=== PATIENT | male | born 1965 | race Caucasian/White ===

== ENCOUNTER 2018-05-12 21:18 | Emergency (ER) | payer SELFPAY ==
[~2018-05-12] VITALS: Ht 177.8 cm; Wt 79.4 kg
[2018-05-12 21:18] VITALS: BP 136/99
--- NOTE | 2018-05-12 21:23 | NUR ---
PT MAREK DAVIS. TAKEN TO BED 11
--- NOTE | 2018-05-12 21:25 | NUR ---
PT BROUGHT INTO ED BY [facility]. PT REPORTS HEARING VOICESN AND REQUESTING HELP. PT REPORTS USING METH X 1 DAY AGO. PT SPEECH IS RAPID AND IS ORIENTED TO TIME, NAME, AND EVENT. PT IS PLACED ON ALL MONITORS AND SINUS TACHYCARDIA IS NOTED. NO LABORED BREATHED IS NOTED. R/R IS EVEN AND UNLABORED. PENDING MD SANDOVAL. Addendum: 05/12/18 at 2202 by JESS UPON ARRIVAL PT STATED HE WANTED TO CHECK INTO REHAB. PT TOLD EMS HE WAS HEARING VOICES AND REQUESTING HELP. NO MENTION OF THIS TO RN UPON ARRIVAL.
--- NOTE | 2018-05-12 21:27 | NUR ---
# 14 FR Urinary catheter inserted utilizing sterile technique. Immediate return of 50ML urine noted. Urine sample collected and sent to lab. Pt tolerated procedure WELL.
--- NOTE | 2018-05-12 22:12 | NUR ---
Dr. Fields evaluating patient at bedside.
[2018-05-12] MEDS ORDERED: NACL 0.9% 1,000 ML IV ONE (22:20)
[2018-05-12] MEDS ORDERED: KETOROLAC 30 MG/ML VIAL IVP ONE (22:20)
[2018-05-12] MEDS ORDERED: ASPIRIN 81 MG TAB.CHEW PO ONE (22:20)
--- NOTE | 2018-05-12 22:27 | NUR ---
X-Ray at bedside.
[2018-05-12 22:30] LABS: APPEARANCE,URINE CLEAR (CLEAR); BILIRUBIN,URINE 1+ (NEGATIVE); BLOOD, URINE NEGATIVE (NEGATIVE); COLOR,URINE YELLOW (YELLOW); LEUKOCYTE ESTERASE ,URINE NEGATIVE (NEGATIVE); NITRITE, URINE NEGATIVE (NEGATIVE); UGLUCOSE NEGATIVE (NEGATIVE)
[2018-05-12 22:36] LABS: BARBITURATE, URINE NEG. ng/ml (NEG <=200); BENZODIAZEPINE, URINE NEG. ng/mL (NEG <=200); CANNABINOID, URINE NEG. ng/mL (NEG <=50); COCAINE, URINE NEG. ng/mL (NEG <=300); OPIATE, URINE POS. ng/mL (NEG <=2000); PHENCYCLIDINE SCREEN,URINE NEG. ng/mL (NEG <=25)
[2018-05-12 22:51] LABS: RBC,URINE 0-5 (RARE) /HPF (0-5); URINE AMORPHOUS URATE 2+ /HPF (None Seen); WBC,URINE 0-5 (RARE) /HPF (0-5)
[2018-05-12 22:53] LABS: BASOPHILS # (AUTO) 0.1 K/uL (0.00-0.22); BASOPHILS % (AUTO) 0.4 % (0.0-2.0); HEMATOCRIT 44.2 % (36-52); HEMOGLOBIN 14.7 g/dL (12.0-18.0); LYMPHOCYTES # (AUTO) 1.5 K/uL (2.0-11.5); LYMPHOCYTES % (AUTO) 9.9 % (20.5-51.1); MEAN CORPUSCULAR HEMOGLOBIN 27 pg (27-31); MEAN CORPUSCULAR HGB CONC 33 g/dL (33-37); MEAN CORPUSCULAR VOLUME 81.6 fL (80-94); MONOCYTES # (AUTO) 1.1 K/uL (0.8-1.0); MONOCYTES % (AUTO) 6.8 % (1.7-9.3); NEUTROPHILS # (AUTO) 12.9 K/uL (1.8-7.7); NEUTROPHILS % (AUTO) 82.9 % (42.2-75.2); PLATELET COUNT (AUTO) 374 K/uL (140-450); RED BLOOD CELL COUNT(AUTO) 5.42 MIL/uL (4.20-6.10); RED CELL DISTRIBUTION WIDTH 16.8 % (11.6-13.7)
[2018-05-12 23:00] LABS: ANION GAP 14.2 (8-16); CARBON DIOXIDE 24.5 mmol/L (21-32); CREATININE 0.9 mg/dL (0.7-1.3); POTASSIUM 3.7 mmol/L (3.5-5.1)
[2018-05-12 23:03] LABS: PROTHROMBIN TIME 11.8 secs (10.8-13.4); WHITE BLOOD COUNT (AUTO) 15.6 K/uL (4.8-10.8)
[2018-05-12 23:07] LABS: ALBUMIN 4.1 g/dL (3.4-5.0); TOTAL BILIRUBIN 0.6 mg/dL (0.0-1.0)
--- NOTE | 2018-05-13 00:06 | NUR ---
PT THREW CLOTHES IN MY FACE THREE TIMES. PT THREW HIS SHOES AT ME. SECURITY CALLED FOR ASSISTANCE WITH DISCHARGING PATIENT. PT REFUSED TO SIGN DISCHARGE PAPARS. SECURITY AT BEDSIDE ASSISTING PT TO BE DISCHARGED .
[2018-05-13 00:09] VITALS: BP 130/89
--- NOTE | 2018-05-13 00:26 | NUR ---
[facility] HERE NOW TO ESCORT PT OFF PREMESIS
--- NOTE | 2018-05-13 00:50 | NUR ---
Patient discharged with v/s stable. Written and verbal after care instructions given and explained. PT REFUSED TO SIGN DISCHARGE PAPERWORK. Ambulatory with steady gait ESCORTED BY [facility]. All questions addressed prior to discharge. Advised to follow up with PMD.
[2018-05-13] MEDS ORDERED: LISI5TAB18 PO (17:17)
== END 2018-05-13 00:50 | disposition home or self-care (01) ==
LOC: MED 21:18
DX: R07.9 Chest pain, unspecified (principal); F15.10 Other stimulant abuse, uncomplicated; F17.200 Nicotine dependence, unspecified, uncomplicated
CPT/HCPCS: 36415; 71045; 80053; 80305; 81001; 83880; 84484; 85025; 85610; 85730; 96374; 99285; J1885; J7030; Q0092

== ENCOUNTER 2018-05-13 11:44 | Inpatient (IN) | payer MEDICAID ==
[~2018-05-13] VITALS: Ht 175.3 cm; Wt 76.8 kg
--- NOTE | 2018-05-13 11:46 | NUR ---
PT JORGEA BLS TO ER BED 09
--- NOTE | 2018-05-13 11:50 | NUR ---
PT SEEN IN ER YESTERDAY WITH METH. USE AND INSOMNIA. TODAY DENIES METH/ALCOHOL USE BUT CAN NOT SLEEP. NO OTHER COMPLAINTS. HX: SUBSTANCE ABUSE, DEPRESSION,CABG, ANXIETY,DEPRESSION. DENIES MEDS.VSS; PATIENT POSITIONED FOR COMFORT; HOB ELEVATED; BEDRAILS UP X2; BED DOWN. ER MD MADE AWARE OF PT STATUS.
[2018-05-13 11:55] VITALS: BP 118/80
[2018-05-13] MEDS ORDERED: ACETAMINOPHEN 325 MG TAB PO ONE (12:25)
[2018-05-13] MEDS ORDERED: NACL 0.9% 1,000 ML IV ONE (12:35)
[2018-05-13] MEDS ORDERED: NACL 0.9% 500 ML IV ONE (12:35)
[2018-05-13 13:17] LABS: BASOPHILS % (AUTO) 0.1 % (0.0-2.0); HEMATOCRIT 45.6 % (36-52); HEMOGLOBIN 15.2 g/dL (12.0-18.0); LYMPHOCYTES % (AUTO) 18.5 % (20.5-51.1); MEAN CORPUSCULAR HEMOGLOBIN 27 pg (27-31); MEAN CORPUSCULAR HGB CONC 33 g/dL (33-37); MEAN CORPUSCULAR VOLUME 82.1 fL (80-94); MONOCYTES # (AUTO) 1.1 K/uL (0.8-1.0); MONOCYTES % (AUTO) 10.3 % (1.7-9.3); NEUTROPHILS # (AUTO) 7.9 K/uL (1.8-7.7); NEUTROPHILS % (AUTO) 71.1 % (42.2-75.2); PLATELET COUNT (AUTO) 355 K/uL (140-450); RED BLOOD CELL COUNT(AUTO) 5.55 MIL/uL (4.20-6.10); RED CELL DISTRIBUTION WIDTH 16.6 % (11.6-13.7); WHITE BLOOD COUNT (AUTO) 11.1 K/uL (4.8-10.8)
--- NOTE | 2018-05-13 13:30 | NUR ---
Patient appears to be resting comfortably in bed. Vital Signs within normal limits. Respirations even and unlabored.
[2018-05-13 13:35] LABS: ANION GAP 14.9 (8-16); CARBON DIOXIDE 25.5 mmol/L (21-32); CHLORIDE 103 mmol/L (98-107); CREATININE 0.9 mg/dL (0.7-1.3); GFR ARICAN-AMERICAN 114 mL/min (>90); GLUCOSE 91 mg/dL (74-106); POTASSIUM 3.4 mmol/L (3.5-5.1); SODIUM SERUM 140 mmol/L (136-145); UREA NITROGEN, BLOOD 19 mg/dL (7-18)
[2018-05-13 13:42] LABS: MAGNESIUM 2.1 mg/dL (1.8-2.4)
[2018-05-13 13:46] LABS: ACETAMINOPHEN 22.8 ug/ml (10-30); ALBUMIN 4.2 g/dL (3.4-5.0); ASPARTATE AMINOTRANSFERASE 20 U/L (15-37); SALICYLATE 4.1 mg/dL (2.8-20.0); TOTAL BILIRUBIN 0.6 mg/dL (0.0-1.0)
[2018-05-13 14:23] LABS: APPEARANCE,URINE CLEAR (CLEAR); BILIRUBIN,URINE NEGATIVE (NEGATIVE); BLOOD, URINE NEGATIVE (NEGATIVE); COLOR,URINE YELLOW (YELLOW); LEUKOCYTE ESTERASE ,URINE NEGATIVE (NEGATIVE); NITRITE, URINE NEGATIVE (NEGATIVE); UGLUCOSE NEGATIVE (NEGATIVE)
[2018-05-13 14:32] LABS: BARBITURATE, URINE NEG. ng/ml (NEG <=200); BENZODIAZEPINE, URINE NEG. ng/mL (NEG <=200); CANNABINOID, URINE NEG. ng/mL (NEG <=50); COCAINE, URINE NEG. ng/mL (NEG <=300); OPIATE, URINE POS. ng/mL (NEG <=2000); PHENCYCLIDINE SCREEN,URINE NEG. ng/mL (NEG <=25)
[2018-05-13] MEDS ORDERED: ONDANSETRON 4 MG/2 ML VIAL IM/IVP PRN (16:15)
[2018-05-13] MEDS ORDERED: HYDROcodone/APAP 5/325 MG 1 TAB TAB PO PRN (16:15)
[2018-05-13] MEDS ORDERED: ACETAMINOPHEN 325 MG TAB PO PRN (16:15)
[2018-05-13] MEDS ORDERED: DOCUSATE SODIUM 100 MG GELCAP PO PRN (16:15)
[2018-05-13] MEDS ORDERED: LORazepam 2 MG/ML VIAL IM/IVP PRN (16:15)
[2018-05-13] MEDS ORDERED: MORPHINE SULFATE 2 MG/ML SYR IVP PRN (16:15)
[2018-05-13] MEDS ORDERED: ZOLPIDEM 5 MG TAB PO PRN (16:15)
--- NOTE | 2018-05-13 16:50 | NUR ---
Admited to TELE. Will go to room 119B. Belongings list completed. Report to MARIELENA MILLER.
[2018-05-13 17:03] LABS: PROTHROMBIN TIME 11.6 secs (10.8-13.4)
--- NOTE | 2018-05-13 17:10 | NUR ---
PT ARRIVED FROM ER VIA [facility]URNEY AMBULATES FROM HALLWAY TO BED WITH STEADY GAIT. PT PLACED ON LABOR COMMISSIONER, RECEIVED REPORT FROM ER NURSE. PT AWAKE, ALERT, RAMBLING ABOUT SEEING & HEARING THINGS, AND FEELING SOMETHING IN HIS EAR. RESTLESS, CANNOT STAY STILL.RESPIRATIONS EVEN, UNLABORED. SKIN WARM AND DRY, COLOR WNL. SKIN INTACT. WITH MID CHEST SURGICAL SCAR HEALED, AND LOWER BACK HEALED SURGICAL SCAR NOTED. VITALS STABLE. PT ORIENTED TO ROOM AND UNIT. POC REVIEWED.CALL LIGHT WITHIN REACH. BED AT LOW POSITION. SIDERAILS UP. MRSA SWAB DONE. WILL CONTINUE TO MONITOR.
[2018-05-13 17:16] LABS: PHOSPHORUS 2.7 mg/dL (2.5-4.9); THYROID STIMULATING HORMONE 0.39 uIU/mL (0.34-3.74)
[2018-05-13] MEDS ORDERED: LISI5TAB18 PO (17:17)
[2018-05-13] MEDS: HALOPERIDOL 5 MG TAB PO SCH (18:09)
[2018-05-13] MEDS: NACL 0.9% 1,000 ML IV SCH (18:10)
--- NOTE | 2018-05-13 18:20 | NUR ---
SCHEDULED MEDS GIVEN. PT TOLERATED WELL. ATE 100% OF DINNER AND DRANK FLUIDS. ATIVAN GIVEN FOR ANXIETY. DR. MCDONOUGH WAS AT BEDSIDE.IV FLUID OF NS AT R FA G 22 AT 60 ML/HR STARTED, PATENT AND INFUSING WELL. PT. NO COMPLAINTS AT THIS TIME. NO RESPIRATORY DISTRESS NOTED. WILL CONTINUE TO MONITOR.
[2018-05-13 18:25] VITALS: BP 120/80
--- NOTE | 2018-05-13 19:23 | NUR ---
ENDORSED BEDSIDE REPORT TO NEEDLE BOARD REPAIRER NURSE. PT IS SLEEPING, RESPIRATIONS EVEN AND UNLABORED, IN STABLE CONDITION. SCD DEVICE ATTACHED ON LOWER EXTREMITIES. SIDE RAILS WERE PADDED FOR SEIZURE PRECAUTIONS.
--- NOTE | 2018-05-13 19:30 | NUR ---
WEATHERIZATION ADMINISTRATOR attempted to meet with patient for a screen to discuss and gather additional needed information about Patient. Patient was sleeping and despite attempt to woke him up Patient woke up for an instant and stated " I do not want to talk or provide information" Patient declined meeting.
--- NOTE | 2018-05-13 19:45 | NUR ---
RECEIVED REPORT AT BEDSIDE BY GARDEN EQUIPMENT MECHANIC NURSE MARJAN-ANGELA. PT SLEEPING IN BED, ON ROOM AIR WITH IV SITE ON RIGHT FA #22G WITH NS RUNNING AT 60ML/HR. SKIN INTACT. WITH MID CHEST SURGICAL SCAR HEALED, AND LOWER BACK HEALED SURGICAL SCAR NOTED. NO S/S OF RESPIRATORY DISTRESS OR DISCOMFORT NOTED AT THIS TIME. BED IN LOWEST POSITION, BED BREAKS ON, BOTH SIDE RAILS UP. BEDSIDE TABLE AND CALL LIGHT ARE WITHIN REACH. NO S/S OF RESPIRATORY DISTRESS OR DISCOMFORT NOTED AT THIS TIME. WILL CONTINUE TO MONITOR.
[2018-05-13 20:00] VITALS: BP 120/71
--- NOTE | 2018-05-13 20:00 | NUR ---
VITAL SIGNS TAKEN AND TOLERATED WELL. PT CONTINUES TO BE IN DEEP SLEEP. NO S/S OF RESPIRATORY DISTRESS OR DISCOMFORT NOTED AT THIS TIME. WILL CONTINUE TO MONITOR.
--- NOTE | 2018-05-13 22:00 | NUR ---
PT CONTINUES TO BE IN DEEP SLEEP. NO S/S OF RESPIRATORY DISTRESS OR DISCOMFORT NOTED AT THIS TIME. WILL CONTINUE TO MONITOR.
[2018-05-13] MEDS ORDERED: INFLUENZA VIRUS VACCINE QUAD 0.5 ML SYR IMVAC SCH (22:55)
[2018-05-14] VITALS: BP 112/77
--- NOTE | 2018-05-14 02:00 | NUR ---
PT CONTINUES TO SLEEP. NO S/S OF RESPIRATORY DISTRESS OR DISCOMFORT NOTED AT THIS TIME. WILL CONTINUE TO MONITOR.
--- NOTE | 2018-05-14 03:17 | NUR ---
PT RETURNED FROM CT SCAN. PT TOLERATED WELL. NO S/S OF RESPIRATORY DISTRESS OR DISCOMFORT NOTED AT THIS TIME. WILL CONTINUE TO MONITOR.
[2018-05-14 04:00] VITALS: BP 123/70
--- NOTE | 2018-05-14 04:00 | NUR ---
VITAL SIGNS TAKEN AND TOLERATED WELL. NO S/S OF RESPIRATORY DISTRESS OR DISCOMFORT NOTED AT THIS TIME. WILL CONTINUE TO MONITOR.
[2018-05-14 07:04] LABS: BASOPHILS % (AUTO) 0.2 % (0.0-2.0); HEMATOCRIT 43.3 % (36-52); HEMOGLOBIN 14.5 g/dL (12.0-18.0); LYMPHOCYTES # (AUTO) 2.2 K/uL (2.0-11.5); LYMPHOCYTES % (AUTO) 15.1 % (20.5-51.1); MEAN CORPUSCULAR HEMOGLOBIN 27 pg (27-31); MEAN CORPUSCULAR HGB CONC 33 g/dL (33-37); MEAN CORPUSCULAR VOLUME 81.8 fL (80-94); MONOCYTES # (AUTO) 0.9 K/uL (0.8-1.0); MONOCYTES % (AUTO) 6.4 % (1.7-9.3); NEUTROPHILS # (AUTO) 11.3 K/uL (1.8-7.7); NEUTROPHILS % (AUTO) 78.3 % (42.2-75.2); PLATELET COUNT (AUTO) 326 K/uL (140-450); RED CELL DISTRIBUTION WIDTH 16.7 % (11.6-13.7); WHITE BLOOD COUNT (AUTO) 14.4 K/uL (4.8-10.8)
--- NOTE | 2018-05-14 07:28 | NUR ---
RECEIVED REPORT AT BEDSIDE FROM TRANSPORT TECHNICIAN NURSE. HEALED MID CHEST SURGICAL SCAR AND HEALED LOWER BACK SURGICAL SCAR NOTED. SKIN INTACT. NO S/S OF RESPIRATORY DISTRESS, RESPIRATIONS EVEN AND UNLABORED. LUNGS CTA. PATIENT COMPLAINING OF NASAL CONGESTION. HEART RHYTHM IS REGULAR. IV SITE PATENT AND ASYMPTOMATIC, RUNNING IVF PER MD ORDERS. SCD IN PLACE. ON SEIZURE PRECAUTIONS. BED IN LOWEST POSITION, BED BREAKS ON, BOTH SIDE RAILS UP. BEDSIDE TABLE AND CALL LIGHT ARE WITHIN REACH. WILL CONTINUE TO MONITOR. Addendum: 05/14/18 at 0827 by Celine Ag Meng, RN DENIES VISUAL, AUDITORY, TACTILE HALLUCINATIONS AT THIS TIME.
[2018-05-14 07:46] LABS: ANION GAP 10.5 (8-16); CARBON DIOXIDE 25.3 mmol/L (21-32); CREATININE 0.8 mg/dL (0.7-1.3); POTASSIUM 3.8 mmol/L (3.5-5.1)
[2018-05-14 08:00] VITALS: BP 115/78
--- NOTE | 2018-05-14 08:47 | NUR ---
NOTIFIED DR. MCDONOUGH THAT PT IS COMPLAINING OF NASAL CONGESTION AND INTERMITTENT COUGH. PT SEEN BLOWING NOSE WITH THIN CLEAR NASAL DISCHARGE, COUGH NOT SEEN AT THIS TIME.
[2018-05-14] MEDS: NACL 0.9% 1,000 ML IV SCH (08:54)
--- NOTE | 2018-05-14 08:56 | NUR ---
PATIENT HAS BEEN SCREENED AND CATEGORIZED MODERATE NUTRITION RISK. PATIENT WILL BE SEEN WITHIN 3-5 DAYS OF ADMISSION. 05/16/18 05/18/[address]
[2018-05-14] MEDS ORDERED: FLUTICASONE NASAL 50 MCG/ACTUATION 16 GM BTL NS SCH (09:00)
[2018-05-14] MEDS ORDERED: AZITHROMYCIN 250 MG TAB PO SCH (09:00)
[2018-05-14] MEDS: HALOPERIDOL 5 MG TAB PO SCH (09:29)
--- NOTE | 2018-05-14 09:40 | NUR ---
HELPED PATIENT TO THE SHOWERING ROOM. GAIT EVEN AND STEADY WITHOUT ASSIST. NO COMPLAINTS OF DIZZINESS. TELE MONITORING REMOVED, ELECTRICIAN HELPER POWERHOUSE IS AWARE.
--- NOTE | 2018-05-14 10:00 | NUR ---
PATIENT BACK IN BED. TELE MONITORING APPLIED, FAIRGROUND OPERATOR AWARE.
[2018-05-14] MEDS ORDERED: guaiFENesin DM 200/20 MG-10 ML 10 ML UDC PO PRN (10:45)
[2018-05-14] MEDS ORDERED: BENZTROPINE 1 MG TAB PO SCH ×2 (10:47→21:00)
--- NOTE | 2018-05-14 11:01 | NUR ---
AKILAH DM ADMINISTERED FOR COUGH. PT EDUCATED ON HOW TO GIVE SPUTUM SAMPLE. PT VERBALIZED UNDERSTANDING.
[2018-05-14 12:00] VITALS: BP 114/81
--- NOTE | 2018-05-14 12:48 | NUR ---
PT STATES THAT HE WANTS TO LEAVE AMA. STATES HE IS FEELING "ANXIOUS ABOUT PAYING RENT" AND HE DOESN'T THINK WE WILL BE ABLE TO FIND HIM PLACEMENT. OFFERED ATIVAN IVP FOR ANXIETY AND EXPLAINED THAT CM AND SS ARE WORKING ON PLACEMENT AND THAT PSYCH WILL BE IN THIS AFTERNOON TO EVALUATE. PT DOES NOT WANT TO STAY. DR. MCDONOUGH INFORMED.
--- NOTE | 2018-05-14 12:50 | NUR ---
OFFERED FLU VACCINE TO PATIENT BEFORE LEAVING AMA. PT REFUSED, DOES NOT WANT TO WAIT ANY LONGER. PT ALREADY DRESSED AND READY TO WALK OUT OF UNIT.
--- NOTE | 2018-05-14 12:52 | NUR ---
PT SIGNED AMA FORM. ALCOHOL AND DRUG ABUSE RESOURCE PACKET GIVEN TO PATIENT. DR. MCDONOUGH SPOKE TO PATIENT REGARDING RISKS OF LEAVING. PT VERBALIZED COMPLETE UNDERSTANDING BUT CONTINUES TO WISH TO LEAVE AMA.
--- NOTE | 2018-05-14 12:55 | NUR ---
ID BANDS REMOVED. IV SITE REMOVED WITH MINIMAL BLOOD LOSS AND LUMEN COMPLETELY INTACT. PT RETRIEVED HIS FISHMAN FROM [employer]'S OFFICE. LEFT HOSPITAL WITH ALL HIS BELONGINGS.
== END 2018-05-14 12:55 | disposition left against medical advice (07) | DRG 812 ==
LOC: MED 11:44 → MTU 15:48
PROVIDERS: ADMIT General Practice; ATTEND General Practice
DX: T43.621A Poisoning by amphetamines, accidental (unintentional), initial encounter (principal); N17.0 Acute kidney failure with tubular necrosis; G92 Toxic encephalopathy; E87.2 Acidosis; R65.10 Systemic inflammatory response syndrome (SIRS) of non-infectious origin without acute organ dysfunction; F29 Unspecified psychosis not due to a substance or known physiological condition; F17.210 Nicotine dependence, cigarettes, uncomplicated; E87.6 Hypokalemia; E66.3 Overweight; E78.5 Hyperlipidemia, unspecified; Z53.21 Procedure and treatment not carried out due to patient leaving prior to being seen by health care provider; J32.9 Chronic sinusitis, unspecified; F43.9 Reaction to severe stress, unspecified; F11.90 Opioid use, unspecified, uncomplicated; Y92.89 Other specified places as the place of occurrence of the external cause; Z95.1 Presence of aortocoronary bypass graft; Z98.1 Arthrodesis status; Z79.899 Other long term (current) drug therapy; Z68.25 Body mass index [BMI] 25.0-25.9, adult
CPT/HCPCS: 36415; 70450; 71046; 80048; 80053; 80305; 81003; 82140; 82550; 83036; 83605; 83690; 83735; 84100; 84134; 84443; 84484; 85025; 85610; 85730; 87040; 87081; 87086; 93005; 99285; G0480; G0482; J1630; J2060; J2270; J7030

== ENCOUNTER 2018-05-14 16:16 | Emergency (ER) | payer MEDICAID ==
[~2018-05-14] VITALS: Ht 175.3 cm; Wt 77.1 kg
[~2018-05-14 16:16] MED LIST: LISI5TAB18 PO
--- NOTE | 2018-05-14 16:28 | NUR ---
Called Pt. to triage, pt not in lobby or outside at this time.
[2018-05-14 16:39] VITALS: BP 115/88
--- NOTE | 2018-05-14 16:47 | NUR ---
PT AMBULATES TO BED 2
--- NOTE | 2018-05-14 16:50 | NUR ---
53/m c/o SWELLING OF THE MOUTH X 3 HOURS AFTER PSYCH MEDICATION THAT WAS GIVEN HERE AND THEN SIGNED OUT OF HOSPITAL. DIFFICULTY SWALLOWING, TONGUE SWELLING NOTED. DENIES SOB. ABLE TO SPEAK IN FULL SENTENCES. MED HX: TRIPLE BYPASS : 4 MONTHS AGO LUMBAR FUSION CARPAL TUNNEL ALLERGIES: PSYCH MED UNKWN MEDICATIONS: LIPITOR, OXYCODONE
[2018-05-14] MEDS ORDERED: diphenhydrAMINE 50 MG/ML VIAL IVP ONE (17:00)
[2018-05-14] MEDS ORDERED: NACL 0.9% 1,000 ML IV ONE (17:00)
[2018-05-14 18:30] VITALS: BP 107/69
--- NOTE | 2018-05-14 18:30 | NUR ---
Michael agrawal in EDM - 05/14/18 at 1834 by [facility] Patient discharged with v/s stable. Written and verbal after care instructions given and explained. Patient verbalized understanding. Ambulatory with steady gait. All questions addressed prior to discharge. Advised to follow up with PMD.
--- NOTE | 2018-05-14 18:30 | NUR ---
Patient discharged with v/s stable. Written and verbal after care instructions given and explained. Patient alert, oriented and verbalized understanding of instructions. Ambulatory with steady gait. All questions addressed prior to discharge. ID band removed. Patient advised to follow up with PMD. Rx of BENADRYL given. Patient educated on indication of medication including possible reaction and side effects. Opportunity to ask questions provided and answered.
== END 2018-05-14 18:30 | disposition home or self-care (01) ==
LOC: MED 16:16
DX: G24.09 Other drug induced dystonia (principal); T43.625A Adverse effect of amphetamines, initial encounter; Y92.89 Other specified places as the place of occurrence of the external cause; Z79.899 Other long term (current) drug therapy
CPT/HCPCS: 96374; 99284; J1200; J7030

== ENCOUNTER 2018-06-10 15:26 | Inpatient (IN) | payer MEDICAID, OTHER ==
[~2018-06-10] VITALS: Ht 177.8 cm; Wt 73.0 kg
--- NOTE | 2018-06-10 15:27 | NUR ---
PT BIBA ALS TO BED 7
[2018-06-10 15:30] VITALS: BP 120/75
--- NOTE | 2018-06-10 15:45 | NUR ---
Patient being evaluated by physician at bedside.
[2018-06-10] MEDS ORDERED: LORazepam 2 MG/ML VIAL IVP ONE ×2 (15:50→16:50)
--- NOTE | 2018-06-10 15:52 | NUR ---
# 14 FR Urinary catheter inserted utilizing sterile technique. Immediate return of 450 ml CLEAR YELLOW urine noted. Urine sample collected and sent to lab. Pt tolerated procedure WELL .
--- NOTE | 2018-06-10 15:59 | NUR ---
BIB EMS FROM HOME WITH C/O ALTERED WITH UPPER BODY REPEATITIVE MOVEMENT FOR ABOUT 40 MINUTES PRIOR TO ARRIVAL; WAS SEEN ON 05/14/2018 [facility] SAME S/S WITH HX OF METH USE HX; BIPOLAR, HTN RX; AMBIEN, LIPITOR, LISINOPRIL, CARVEDILOL, ASA
--- NOTE | 2018-06-10 16:00 | NUR ---
ATTEMPTED AN EKG ON PT. PT TREMBLING UNCONTROLLABLE.
--- NOTE | 2018-06-10 16:13 | NUR ---
LAB CALLED FOR SPECIMEN COLLECTION
[2018-06-10] MEDS: NACL 0.9% 1,000 ML IV SCH ×3 (16:16→20:20)
[2018-06-10 16:20] LABS: BASOPHILS # (AUTO) 0.1 K/uL (0.00-0.22); BASOPHILS % (AUTO) 0.7 % (0.0-2.0); HEMATOCRIT 45.3 % (36-52); LYMPHOCYTES % (AUTO) 23.5 % (20.5-51.1); MEAN CORPUSCULAR HEMOGLOBIN 27 pg (27-31); MEAN CORPUSCULAR HGB CONC 33 g/dL (33-37); MONOCYTES % (AUTO) 8.1 % (1.7-9.3); NEUTROPHILS # (AUTO) 8.6 K/uL (1.8-7.7); NEUTROPHILS % (AUTO) 67.7 % (42.2-75.2); PLATELET COUNT (AUTO) 388 K/uL (140-450); RED BLOOD CELL COUNT(AUTO) 5.53 MIL/uL (4.20-6.10); WHITE BLOOD COUNT (AUTO) 12.6 K/uL (4.8-10.8)
--- NOTE | 2018-06-10 16:25 | NUR ---
XRAY AT BEDSIDE
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
[2018-06-10 16:33] LABS: APPEARANCE,URINE CLEAR (CLEAR); BILIRUBIN,URINE NEGATIVE (NEGATIVE); BLOOD, URINE NEGATIVE (NEGATIVE); COLOR,URINE YELLOW (YELLOW); LEUKOCYTE ESTERASE ,URINE NEGATIVE (NEGATIVE); NITRITE, URINE NEGATIVE (NEGATIVE); UGLUCOSE NEGATIVE (NEGATIVE)
[2018-06-10 16:39] LABS: BARBITURATE, URINE NEGATIVE ng/ml (NEG <=200); BENZODIAZEPINE, URINE NEGATIVE ng/mL (NEG <=200); CANNABINOID, URINE NEGATIVE ng/mL (NEG <=50); COCAINE, URINE NEGATIVE ng/mL (NEG <=300); OPIATE, URINE NEGATIVE ng/mL (NEG <=2000); PHENCYCLIDINE SCREEN,URINE NEGATIVE ng/mL (NEG <=25)
[2018-06-10 16:48] LABS: ANION GAP 19.8 (8-16); CARBON DIOXIDE 25.5 mmol/L (21-32); CHLORIDE 100 mmol/L (98-107); POTASSIUM 3.3 mmol/L (3.5-5.1); SODIUM SERUM 142 mmol/L (136-145)
[2018-06-10 16:49] LABS: ASPARTATE AMINOTRANSFERASE 20 U/L (15-37); CREATININE 1.4 mg/dL (0.7-1.3); GFR ARICAN-AMERICAN 69 mL/min (>90); GLUCOSE 91 mg/dL (74-106); TOTAL BILIRUBIN 0.8 mg/dL (0.0-1.0); UREA NITROGEN, BLOOD 12 mg/dL (7-18)
[2018-06-10 16:50] LABS: ACETAMINOPHEN < 0.5 ug/ml (10-30); ALBUMIN 4.2 g/dL (3.4-5.0); SALICYLATE < 2.8 mg/dL (2.8-20.0)
[2018-06-10] MEDS ORDERED: diphenhydrAMINE 50 MG/ML VIAL IVP ONE (16:50)
[2018-06-10] MEDS ORDERED: HALOPERIDOL IM 5 MG/ML VIAL IM ONE (16:50)
--- NOTE | 2018-06-10 16:50 | NUR ---
PT AGITATED , CAN'T DO EKG. PT STATED HE FEEL ITCHING. NOTIFIED DR PEREZ.
--- NOTE | 2018-06-10 17:26 | NUR ---
PT RETURNED FROM CT
--- NOTE | 2018-06-10 18:15 | NUR ---
Patient appears to be SLEEPING comfortably in bed. Vital Signs within normal limits. Respirations even and unlabored.WILL CONTINUE TO MONITOR.
--- NOTE | 2018-06-10 18:45 | NUR ---
Note tanja in EDM - 06/10/18 at 1954 by BOZENA Patient will be admitted to care of DR. SABA. Admited to TELE. Will go to room 121B. Belongings list completed. Report to BERNARD MILLER.
[2018-06-10] MEDS ORDERED: ACETAMINOPHEN 325 MG TAB PO PRN (19:15)
[2018-06-10] MEDS ORDERED: ONDANSETRON 4 MG/2 ML VIAL IM/IVP PRN (19:15)
[2018-06-10] MEDS ORDERED: MORPHINE SULFATE 2 MG/ML SYR IVP PRN (19:15)
[2018-06-10] MEDS ORDERED: HYDROcodone/APAP 7.5/325 MG 1 TAB PO PRN (19:15)
[2018-06-10] MEDS ORDERED: DOCUSATE SODIUM 100 MG GELCAP PO PRN (19:15)
--- NOTE | 2018-06-10 19:19 | NUR ---
Pt report given to MARIA M. Transfer of care at this time.
--- NOTE | 2018-06-10 19:45 | NUR ---
Patient will be admitted to care of DR. SABA. Admited to TELE. Will go to room 121B. Belongings list completed. Report to BERNARD MILLER.
--- NOTE | 2018-06-10 19:45 | NUR ---
RECEIVED REPORT FROM ER NURSE ARAVIND-RN AT BEDSIDE. PT LETHARGIC BECAUSE OF MEDICATION GIVEN IN ER. ASSISTED WITH PT TRANSFER FROM [facility] TO BED. ASSISTED PT WITH YELLOW NON-SLIP SOCKS, YELLOW ARM BAND AND SIGN- FALL PRECAUTIONS IN PLACE. IV SITE IN LEFT UPPER ARM #18G. UNABLE TO DISCUSS PLAN OF CARE, ORIENTATION TO BEDROOM OR ADMISSION BECAUSE PT IS LETHARGIC. VITAL SIGNS TAKEN AND TOLERATED WELL. ON ROOM AIR. NO S/S OF RESPIRATORY DISTRESS OR DISCOMFORT NOTED AT THIS TIME. MRSA SWAB COLLECTED AND TOLERATED WELL. BED IN LOWEST POSITION, BED BREAKS ON, BOTH SIDE RAILS UP AND BED ALARM ON. CALL LIGHT IS WITHIN REACH. WILL CONTINUE TO MONITOR.
[2018-06-10 20:00] VITALS: BP 105/74
--- NOTE | 2018-06-10 20:20 | NUR ---
NEW IVF BAG HUNG. PT TOLERATED WELL. NO S/S OF RESPIRATORY DISTRESS OR DISCOMFORT NOTED AT THIS TIME. WILL CONTINUE TO MONITOR.
[2018-06-10] MEDS ORDERED: LORazepam 2 MG/ML VIAL IVP PRN (20:45)
[2018-06-10] MEDS ORDERED: LORazepam 1 MG TAB PO PRN (20:45)
[2018-06-10] MEDS ORDERED: KCL 20 MEQ/WATER INJ PREMIX 100 ML IV SCH (21:00)
[2018-06-10 21:10] LABS: PROTHROMBIN TIME 12.1 secs (10.8-13.4)
--- NOTE | 2018-06-10 21:12 | NUR ---
SCHEDULED MEDICATION POTASSIUM CHLORIDE GIVEN. PT TOLERATED WELL. NO S/S OF RESPIRATORY DISTRESS OR DISCOMFORT NOTED AT THIS TIME. WILL CONTINUE TO MONITOR.
[2018-06-10 21:27] LABS: AMYLASE 29 U/L (25-115); CHOL/HDL RATIO 3.5 (1-4.5); FREE T4 (FREE THYROXINE) 1.35 ng/dL (0.76-1.46); HDL CHOLESTEROL 64 mg/dL (40-60); LDL (CALC) 135 mg/dL (60-100); LIPASE 102 U/L (73-393); MAGNESIUM 2.1 mg/dL (1.8-2.4); PHOSPHORUS 2.3 mg/dL (2.5-4.9); THYROID STIMULATING HORMONE 0.63 uIU/mL (0.34-3.74); TRIGLYCERIDES 112 mg/dL (30-150)
--- NOTE | 2018-06-10 21:28 | NUR ---
RECEIVED CRITICAL LAB VALUE: LACTIC ACID 6.0- DR. SPANN COVERING FOR DR. SABA- AWARE. RECEIVED ORDERS TO STOP POTASSIUM CHLORIDE AND INCREASE NS TO 150ML/HR AND RE-TAKE LACTIC ACID BLOOD DRAW AT 2330 06/10/2018.
[2018-06-10 21:49] LABS: LACTATE DEHYDROGENASE 229 U/L (85-227)
[2018-06-10] MEDS ORDERED: LEVOFLOXACIN 500 MG/D5W PREMIX 100 ML IV SCH (22:00)
--- NOTE | 2018-06-10 23:27 | NUR ---
SCHEDULED MEDICATION LEVAQUIN GIVEN AND TOLERATED WELL. PT CONTINUE TO SLEEP. NO S/S OF RESPIRATORY DISTRESS OR DISCOMFORT NOTED AT THIS TIME. WILL CONTINUE TO MONITOR.
[2018-06-11] VITALS: BP 90/53
--- NOTE | 2018-06-11 | NUR ---
VITAL SIGNS TAKEN AND TOLERATED WELL. LOW BP NOTED. PT CONTINUES TO SLEEP. NO S/S OF RESPIRATORY DISTRESS OR DISCOMFORT NOTED AT THIS TIME. WILL CONTINUE TO MONITOR.
--- NOTE | 2018-06-11 01:01 | NUR ---
POTASSIUM CHLORIDE WAS CONTINUED AT THIS TIME. PT CONTINUES TO SLEEP. NO S/S OF RESPIRATORY DISTRESS OR DISCOMFORT NOTED AT THIS TIME. WILL CONTINUE TO MONITOR.
--- NOTE | 2018-06-11 02:54 | NUR ---
PT C/O ANXIETY. ATIVAN WAS GIVEN AND TOLERATED WELL. NO S/S OF RESPIRATORY DISTRESS OR DISCOMFORT NOTED AT THIS TIME. WILL CONTINUE TO MONITOR.
[2018-06-11 04:00] VITALS: BP 123/77
--- NOTE | 2018-06-11 04:00 | NUR ---
VITAL SIGNS TAKEN AND TOLERATED WELL. NO S/S OF RESPIRATORY DISTRESS OR DISCOMFORT NOTED AT THIS TIME. WILL CONTINUE TO MONITOR.
[2018-06-11] MEDS: NACL 0.9% 1,000 ML IV SCH (04:28)
--- NOTE | 2018-06-11 06:00 | NUR ---
PT CONTINUES TO SLEEP IN BED. NO S/S OF RESPIRATORY DISTRESS OR DISCOMFORT NOTED AT THIS TIME. WILL CONTINUE TO MONITOR.
[2018-06-11 07:27] LABS: T4 (THYROXINE) 9.2 ug/dL (4.5-12.0)
--- NOTE | 2018-06-11 07:29 | NUR ---
ENDORSED PT CARE TO DAY SHIFT NURSE BELA-ANGELA FOR CONTINUITY OF CARE.
--- NOTE | 2018-06-11 07:32 | NUR ---
RECEIVED BEDSIDE REPORT FROM SUPERVISOR TOY ASSEMBLY RN. PT IN STABLE CONDITION. AO X2. NO S/S DISTRESS. DENIES PAIN AND DISCOMFORT AT THIS TIME. SKIN INTACT. ON ASPIRATION PRECAUTIONS, FALL PRECAUTIONS, AND SZ PRECAUTIONS. PT IS AMBULATORY, REFUSED SCD. LUNGS CTA. HEART RHYTHM REGULAR. IV SITE PATENT AND ASYMPTOMATIC, INFUSING IVF PER MD ORDERS. ALL SAFETY PRECAUTIONS IN PLACE, WILL CONTINUE TO MONITOR.
[2018-06-11 08:00] VITALS: BP 134/82
--- NOTE | 2018-06-11 08:08 | NUR ---
PATIENT HAS BEEN SCREENED AND CATEGORIZED MODERATE NUTRITION RISK. PATIENT WILL BE SEEN WITHIN 3-5 DAYS OF ADMISSION. 06/13/18 06/15/[address]
--- NOTE | 2018-06-11 08:41 | NUR ---
HAS PLACED PT ON REGULAR DIET. CALLED [facility], LEFT MESSAGE FOR THEM TO BRING BREAKFAST TRAY.
[2018-06-11] MEDS ORDERED: LACTOBACILLUS RHAMNOSUS GG 1 EACH CAP PO SCH (09:00)
[2018-06-11] MEDS ORDERED: SODIUM PHOS / POTASSIUM PHOS 1 PKT PDR PO SCH (09:00)
--- NOTE | 2018-06-11 09:11 | NUR ---
INSTRUCTED PT ON HOW TO OBTAIN CLEAN CATCH URINE SAMPLE. PT VERBALIZED COMPLETE UNDERSTANDING.
[2018-06-11 09:33] LABS: BASOPHILS % (AUTO) 0.6 % (0.0-2.0); HEMATOCRIT 45.4 % (36-52); HEMOGLOBIN 15.1 g/dL (12.0-18.0); LYMPHOCYTES # (AUTO) 2.1 K/uL (2.0-11.5); LYMPHOCYTES % (AUTO) 31.6 % (20.5-51.1); MEAN CORPUSCULAR HEMOGLOBIN 28 pg (27-31); MEAN CORPUSCULAR HGB CONC 33 g/dL (33-37); MEAN CORPUSCULAR VOLUME 82.7 fL (80-94); MONOCYTES # (AUTO) 0.6 K/uL (0.8-1.0); MONOCYTES % (AUTO) 9.3 % (1.7-9.3); NEUTROPHILS # (AUTO) 3.9 K/uL (1.8-7.7); NEUTROPHILS % (AUTO) 58.5 % (42.2-75.2); PLATELET COUNT (AUTO) 314 K/uL (140-450); RED BLOOD CELL COUNT(AUTO) 5.49 MIL/uL (4.20-6.10); RED CELL DISTRIBUTION WIDTH 17.1 % (11.6-13.7); WHITE BLOOD COUNT (AUTO) 6.6 K/uL (4.8-10.8)
[2018-06-11 09:58] LABS: ANION GAP 13.1 (8-16); CARBON DIOXIDE 26.5 mmol/L (21-32); POTASSIUM 3.6 mmol/L (3.5-5.1)
[2018-06-11 10:03] LABS: MAGNESIUM 2.4 mg/dL (1.8-2.4); PHOSPHORUS 2.9 mg/dL (2.5-4.9)
--- NOTE | 2018-06-11 11:02 | NUR ---
NOTIFIED PT THAT HE WILL BE DISCHARGED TODAY. WILL OBTAIN BUS PASS FOR PT. Addendum: 06/11/18 at 1340 by Celine Ag Meng, RN PT IS AO X4 AT THIS TIME.
--- NOTE | 2018-06-11 11:16 | NUR ---
OFFERED PT FLU VACCINE AND PNEUMONIA VACCINE BUT PT REFUSED BOTH FLU VACCINE AND PNEUMONIA VACCINE. SAYS HE NORMALLY RECEIVES VACCINATIONS AT [facility] AND PLANS TO DO SO THIS TIME WELL.
--- NOTE | 2018-06-11 11:34 | NUR ---
PATIENT WALKING IN MST HALLWAYS WITH EVEN AND STEADY GAIT, WITHOUT ASSIST. DENIES DIZZINESS AND UNSTEADINESS. NO S/S DISTRESS. WILL CONTINUE TO MONITOR.
--- NOTE | 2018-06-11 12:05 | NUR ---
BLOOD GLUCOSE IS 96. REPORTED TO DR. RANDOLPH. WILL CHANGE IVF ORDERS AND BLOOD GLUCOSE MONITORING SCHEDULE. Addendum: 06/11/18 at 1230 by Celine Ag Meng, RN WRONG PT
--- NOTE | 2018-06-11 12:41 | NUR ---
DISCHARGE PAPERWORK, INCLUDING INSTRUCTIONS TO FOLLOW UP WITH PCP, GIVEN TO PATIENT. MEDICATION RECONCILIATION TEACHING GIVEN. PT VERBALIZED COMPLETE UNDERSTANDING OF ALL D/C TEACHING. ID BANDS REMOVED. IV SITE REMOVED WITH MINIMAL BLOOD LOSS AND LUMEN COMPLETELY INTACT. BUS PASS GIVEN TO PATIENT. ALL PERSONAL BELONGINGS ARE WITH PATIENT.
--- NOTE | 2018-06-11 12:47 | NUR ---
WALKED WITH PATIENT TO HOSPITAL ENTRANCE. PT TO GO HOME VIA PUBLIC TRANSPORT. IN STABLE CONDITION.
== END 2018-06-11 12:47 | disposition home or self-care (01) | DRG 812 ==
LOC: MED 15:26 → MTU 19:14
PROVIDERS: ADMIT Family Medicine; ATTEND Family Medicine
DX: T43.621A Poisoning by amphetamines, accidental (unintentional), initial encounter (principal); N17.0 Acute kidney failure with tubular necrosis; G92 Toxic encephalopathy; I42.0 Dilated cardiomyopathy; E87.2 Acidosis; E83.39 Other disorders of phosphorus metabolism; E87.6 Hypokalemia; I10 Essential (primary) hypertension; F31.9 Bipolar disorder, unspecified; F43.9 Reaction to severe stress, unspecified; E86.0 Dehydration; E78.5 Hyperlipidemia, unspecified; Z79.899 Other long term (current) drug therapy; Z98.1 Arthrodesis status; Z95.1 Presence of aortocoronary bypass graft; Z87.891 Personal history of nicotine dependence; Y92.89 Other specified places as the place of occurrence of the external cause
CPT/HCPCS: 36415; 70450; 71045; 76705; 80048; 80053; 80305; 81003; 82140; 82150; 82550; 82948; 83036; 83605; 83615; 83690; 83735; 83880; 84100; 84436; 84439; 84443; 84484; 85025; 85610; 85730; 87040; 87081; 93005; 96361; 96372; 96374; 96375; 96376; 99285; C1758; G0480; G0482; J1200; J1630; J1956; J2060; J2270; J3480; Q0092

== ENCOUNTER 2018-06-12 21:43 | Emergency (ER) | payer MEDICAID, OTHER ==
[~2018-06-12] VITALS: Ht 172.7 cm; Wt 74.8 kg
[2018-06-12 21:43] VITALS: BP 108/85
[2018-06-12] MEDS ORDERED: LORazepam 2 MG/ML VIAL IVP ONE ×2 (22:25→23:00)
[2018-06-12] MEDS ORDERED: NACL 0.9% 1,000 ML IV ONE (22:25)
[2018-06-12 23:45] LABS: BASOPHILS % (AUTO) 0.5 % (0.0-2.0); HEMATOCRIT 41.6 % (36-52); HEMOGLOBIN 13.8 g/dL (12.0-18.0); LYMPHOCYTES # (AUTO) 1.7 K/uL (2.0-11.5); LYMPHOCYTES % (AUTO) 27.7 % (20.5-51.1); MEAN CORPUSCULAR HEMOGLOBIN 27 pg (27-31); MEAN CORPUSCULAR HGB CONC 33 g/dL (33-37); MEAN CORPUSCULAR VOLUME 82.2 fL (80-94); MONOCYTES # (AUTO) 0.5 K/uL (0.8-1.0); MONOCYTES % (AUTO) 8.3 % (1.7-9.3); NEUTROPHILS # (AUTO) 3.9 K/uL (1.8-7.7); NEUTROPHILS % (AUTO) 63.5 % (42.2-75.2); PLATELET COUNT (AUTO) 366 K/uL (140-450); RED BLOOD CELL COUNT(AUTO) 5.05 MIL/uL (4.20-6.10); RED CELL DISTRIBUTION WIDTH 16.8 % (11.6-13.7)
[2018-06-12 23:46] LABS: WHITE BLOOD COUNT (AUTO) 6.2 K/uL (4.8-10.8)
[2018-06-13 00:10] LABS: ALBUMIN 3.4 g/dL (3.4-5.0); ANION GAP 11.8 (8-16); ASPARTATE AMINOTRANSFERASE 17 U/L (15-37); CARBON DIOXIDE 27.1 mmol/L (21-32); CHLORIDE 108 mmol/L (98-107); CREATININE 0.8 mg/dL (0.7-1.3); GFR ARICAN-AMERICAN 131 mL/min (>90); GLUCOSE 111 mg/dL (74-106); SODIUM SERUM 144 mmol/L (136-145); TOTAL BILIRUBIN 0.4 mg/dL (0.0-1.0); UREA NITROGEN, BLOOD 8 mg/dL (7-18)
[2018-06-13 00:16] LABS: ACETAMINOPHEN < 0.5 ug/ml (10-30); POTASSIUM 2.9 mmol/L (3.5-5.1); SALICYLATE < 2.8 mg/dL (2.8-20.0)
[2018-06-13 01:03] VITALS: BP 138/80
== END 2018-06-13 01:03 | disposition home or self-care (01) ==
LOC: MED 21:43
DX: T43.621A Poisoning by amphetamines, accidental (unintentional), initial encounter (principal); G25.2 Other specified forms of tremor; Z79.899 Other long term (current) drug therapy; Y92.89 Other specified places as the place of occurrence of the external cause
CPT/HCPCS: 36415; 80053; 85025; 96374; 99284; G0480; G0482; J2060; J7030; 99285